=== PATIENT | female | born 1950 | race Caucasian/White ===

== ENCOUNTER 2016-10-23 09:10 | Emergency (ER) | payer MEDICARE ==
[2016-10-23] MEDS ORDERED: HYDROcodone/Acetaminophen 5/325 mg Tablet ONE (09:53)
== END 2016-10-23 10:04 | disposition home or self-care (01) ==
LOC: BURERS 09:10
DX: G89.18 Other acute postprocedural pain (principal); H57.12 Ocular pain, left eye; H40.9 Unspecified glaucoma
CPT/HCPCS: 99283